=== PATIENT | female | born 1980 | race Caucasian/White ===

== ENCOUNTER 2018-02-15 08:03 | Day surgery (SDC) | payer SELFPAY ==
[~2018-02-15] VITALS: Ht 149.9 cm; Wt 42.6 kg
[~2018-02-15 08:03] MED LIST: JUICE PLUS PO; [UNRECOGNIZED DRUG - OTHER] EX; [UNRECOGNIZED DRUG - OTHER] TOP
[2018-02-15] MEDS ORDERED: GABAPENTIN300 M2 PO (11:26)
[2018-02-15] MEDS ORDERED: MOTRIN800 MG PO (11:26)
[2018-02-15] MEDS ORDERED: PERCOCET 5/325M1 TAB PO (11:26)
[2018-02-15 13:55] VITALS: BP 109/52
== END 2018-02-15 12:05 | disposition home or self-care (01) | DRG 349 ==
LOC: ORM 08:03
PROVIDERS: ATTEND Surgery
PROC: 06BY3ZC Excision of Hemorrhoidal Plexus, Percutaneous Approach (ICD-10-PCS; principal; 2018-02-15)
DX: K64.5 Perianal venous thrombosis (principal)
CPT/HCPCS: C9290; J1100; J2710